=== PATIENT | male | born 1960 | race Caucasian/White ===

== ENCOUNTER 2017-04-23 18:55 | Inpatient (IN) | payer MEDICARE ==
[~2017-04-23] VITALS: Ht 190.5 cm; Wt 103.0 kg
[2017-04-23 19:02] VITALS: BP 136/84
--- NOTE | 2017-04-23 19:09 | Emergency Room Report ---
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 Clinical Suspician of Infection? Mental Status: Sepsis Risk: Have you (or family members/close friends) recently traveled outside the [place]? If Yes, where/when: Have you had exposure to infectious disease within the past month? TB? Other? Specify: 64 years old white male FROM [facility] WHO ARRIVED BY EMS to the ED with sudden onset of upper abdominal pain radiating to the chest with associated vomiting. POOR HISTORIAN AND ROLLING IN BED FROM THE PAIN. Source patient, RN notes reviewed, family, EMS Exam Limitations clinical condition ALLERGIES Coded Allergies: risperidone (From RISPERDAL) (Mild, 04/23/17) History Medical History General Anxiety? Yes Depression? Yes More? Yes Additional hx: PARANOID SCHIZO; EPIGASTRIC PAIN; ONCHYCHOGRPHOSIS, BRONCHOPNEUMOIA; INSOM Surgical Hx Previous Surgery?N Review of Systems All Other Systems Reviewed and Negative Constitutional no symptoms reported Eyes no symptoms reported ENT no symptoms reported. Respiratory no symptoms reported Cardiovascular see HPI, chest pain Gastrointestinal see HPI, abdominal pain, nausea, vomiting Genitourinary no symptoms reported. Musculoskeletal no symptoms reported Skin no symptoms reported Psychiatric/Neurological no symptoms reported Physical Exam Vital Signs Vital Signs Date Time Temp Pulse Resp B/P Pulse O2 O2 Flow FiO2 Ox Delivery Rate 04/23 2100 127 18 121/69 28 04/23 1902 97.8 85 18 136/84 98 - WBC >12,000 or <4,000 or 10% bands? 2 or more SIRS Criteria Met? B/P:136/84 MAP:101 Creatinine >2.0? UA output<0.5ml/kg/hr for 2 hrs? Platelet count >100,000? Lactate >2.0mmol/1? INR >1.2 or PTT > than 60 sec? Evidence of Organ Dysfunction? Provider documented clinical suspician of infection? Y Sepsis Criteria Count: 1 Sepsis Risk: Low Sepsis Risk General Appearance normal appearance, WD/WN Eye Exam - bilateral eye normal exam, bilateral eye PERRL, bilateral eye EOMI Ear, Nose, Throat hearing grossly normal, normal ENT inspection Neck normal inspection, non-tender, supple, full range of motion Respiratory Status Yes: trachea midline, chest symmetrical, non tender chest. No: respiratory distress. Lung Sounds bilateral: normal breath sounds, lungs clear. Cardiovascular normal exam, regular rate/rhythm, no peripheral edema, no gallop, no JVD, no murmur, no rub, normal peripheral pulses Gastrointestinal normal bowel sounds, normal exam, non tender, soft, no organomegaly, no pulsatile mass, abnormal bowel sounds, no guarding, no rebound, SOFT OBESE ABDOMEN NO GUARDING NO RIGIDITY NO REBOUND TENDERNESS TENDERNESS POSITIVE BOWEL SOUNDS. Back normal inspection, no CVA tenderness, no vertebral tenderness Male Genitalia normal genitalia, uncircumcised Nurse present during exam? Yes Neurologic alert, master data analyst II-XII nml as tested, normal exam, oriented x 3 Reflexes Reflexes normal Yes Medical Decision Making LABS/Meds/Orders Pt receiving controlled substance in ED? No Results/Orders Laboratory Tests 04/23/171929: Magnesium 5.1 H 04/23/171929: Sodium 131 L, Potassium 4.4, Chloride 95 L, Carbon Dioxide 26, BUN 17, Creatinine 1.3, Estimated Creat Clear 87, Estimated GFR (MDRD) 57, Glucose 267 H, Calcium 10.3 H, Total Bilirubin 0.9, AST 17, ALT 26, Alkaline Phosphatase 136 H, Creatine Kinase 49, CK-MB (CK-2) Rel Index 2.9, CK and CKMB Interp 1.4, Troponin I < 0.02, Total Protein 8.1, Albumin 3.8, Globulin 4.3 H, Albumin/ Globulin Ratio 0.9 L, Lipase 88, WBC 33.7 *H, RBC 6.36 H, Hgb 18.1 H, Hct 56.3 H, MCV 88.4, RDW 14.6, Plt Count 509 H, MPV 8.6, Gran % 93.5 H, Gran # 31.5 H, Total Counted 100, Lymphocytes % 2.6 L, Monocytes % 3.1, Eosinophils % 0.6, Basophils % 0.3, Neutrophils 62, Band Neutrophils 25 H, Lymphocytes ( Manual) 9 L, Lymphocytes # 0.9, Monocytes (Manual) 4, Monocytes # 1.0, Eosinophils # 0.2, Basophils # 0.1, Platelet Estimate SLIGHT INCREASE, Polychromasia 1+, Hypochromasia 3+, Rouleaux 1+, PUBS MCHC 32.2, MCH 28.5 Current Medication Orders Sig/Saundra Start time Last Medication Dose Route Stop Time Status Admin Sodium Chloride 100 ML .STK-MED ONE 04/23 2057 DC IV Ertapenem 0 .STK-MED ONE 04/23 2056 DC .ROUTE Ertapenem 1 GM ONCE ONE 04/23 2045 AC Sodium Chloride 50 ML IV 04/23 2114 Famotidine 20 MG ONCE ONE 04/23 1915 DC 04/23 IV 04/23 1916 1950 Famotidine 0 .STK-MED ONE 04/23 1915 DC IV Morphine Sulfate 2 MG [id number] PRN 04/23 1915 AC IV Ondansetron HCl 4 MG ONCE ONE 04/23 1915 DC 04/23 IV 04/23 Sodium Chloride 8 ML ONCE ONE 04/23 1915 DC 04/23 IV 04/23 Ondansetron HCl 0 .STK-MED ONE 04/23 1914 DC .ROUTE Sodium Chloride 10 ML PRN PRN 04/23 1900 AC IV 04/24 185 Orders Procedure Date/time Status DIET-NOTHING BY MOUTH 04/24 B Active CULTURE, BLOOD 04/23 2035 Active LACTIC ACID 04/23 2035 Active DIFFERENTIAL-WBC 04/[address] ABD & PELVIS W/O CONTRAST 04/23 1905 Active MAGNESIUM 04/23 1904 Complete ELECTROCARDIOGRAM REQUEST 04/[address] ABD/PELVIS REQ 04/23 1859 Complete CHEST-PORTABLE 04/23 1859 Active IV SALINE LOCK 04/23 1859 Active URINALYSIS/COMPLETE 04/23 1859 Active LIPASE 04/23 1859 Complete CBC WITH AUTO DIFF 04/23 1859 Complete CARDIAC ENZYMES 04/23 1859 Complete CHEM 12 PROFILE 04/23 1859 Complete CM/EKG CM/EKG EKG SINUS TACHYCARDIA AT 1 24/M right BUNDLE BRANCH BLOCK NONSPECIFIC st AND t WAVE CHANGES Departure Departure Time of Disposition 2058 Disposition Still a Patient Clinical Impression Primary Impression: Ileus Secondary Impressions: Constipation, Leucocytosis Condition STABLE Referrals Shmuel GARSIA,Deep Additional Instructions Due to the patient elevated white count, I obtain blood cultures started IV antibiotics and obtained a CT scan of his abdomen and pelvis. I reviewed the patient's labs and CT scan with GENERAL EXPEDITOR SURGEON DR EDMOND who reviewed the CT scan and he does not believe the patient has a distal obstruction. Ischemia cannot be excluded. Dr. lopez recommended the patient to be admitted medical service started on IV antibiotics, obtain Gastrografin enema in the morning and he'll see him in consultation. I contacted Dr. Mi is covering for Dr. Prasad accepted the admission. The patient remained stable during his ED stay with no further vomiting. Discharge Counseling Counseled pt/family regarding diagnosis, test results ED Critical Care Critical Care No If Critical Care minutes are documented, the time involved in the performance of seperately reportable procedures was not counted toward critical care time documented. I directly delivered medical care to this critically ill and/or injured patient. Timely evaluation and treatment was necessary to address the significant organ system(s) dysfunction present in this patient. at [id number]
[2017-04-23 19:46] LABS: LYMPH # 0.9 K/mm3 (0.7-4.5); LYMPH % 2.6 % (10-50)
[2017-04-23 19:51] LABS: HEMOGLOBIN 18.1 g/dL (14.1-18.0)
[2017-04-23 20:14] LABS: NEUTROPHILS 62 % (42-76)
[2017-04-23 20:16] LABS: BUN 17 mg/dL (7-18)
[2017-04-23 20:17] LABS: GFR (ESTIMATED) 57 ML/MIN (>60)
--- NOTE | 2017-04-23 21:21 | RADIOLOGY REPORT PS360 ---
CHEST-PORTABLE HISTORY: Chest pain CP ORDERING PHYSICIAN: Colton Kirkpatrick MD PATIENT AGE: 57 years COMPARISON: None available FINDINGS: The cardiomediastinal silhouette and pulmonary vascularity are within normal limits. The lungs are clear without infiltrates, suspicious nodules, or pleural effusions. No acute bony abnormalities. IMPRESSION: Negative chest, no acute finding
--- NOTE | 2017-04-23 22:14 | RADIOLOGY REPORT PS360 ---
CT ABD PELVIS W/O CONTRAST CLINICAL INDICATION: Abdominal pain with nausea and vomiting PAIN ORDERING PHYSICIAN: Mau Myers MD PATIENT AGE: 57 years COMPARISON: None TECHNIQUE: Axial images obtained with sagittal and coronal reformats. PROCEDURE: Oral Contrast: None IV Contrast: None . FINDINGS: No acute finding in the lung bases. There is a small hiatal hernia. Fluid is present in the distal focus with mild distention of the esophagus. This may be seen with esophageal obstruction or reflux. The liver, gallbladder, spleen, adrenal glands and pancreas are unremarkable. Right kidney is somewhat ectopic and rotated located anterior to the lumbar spine IVC, and right common iliac artery. 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 No obstructing ureteral calculi. No significant hydronephrosis. Urinary bladder slightly distended. Left kidney has an unremarkable appearance. There is mild diffuse dilatation of the entire colon containing fluid and fecal material. There are fluid-filled loops of small bowel without significant distention. No free air evident. Unremarkable appendix. No evidence of diverticulitis. No acute bony anomalies. There is mild dilatation of the common iliac arteries measuring up to 1.9 cm bilaterally. IMPRESSION: 1. Diffusely dilated colon distended with fluid and gas and fecal material consistent with colonic ileus 2. Distended esophagus with fluid with hiatal hernia. 3. 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
[2017-04-23 22:41] VITALS: BP 104/64
[2017-04-24 00:26] LABS: ALLEN'S TEST Y; ARTERIAL ABE -24.9 MMOL/L (-2.4-+2.3); ARTERIAL PO2 87.1 MMHG (80-100); OXYGEN 100
[2017-04-24 00:29] LABS: LYMPH # 2.3 K/mm3 (0.7-4.5); LYMPH % 9.1 % (10-50)
[2017-04-24 00:30] LABS: HEMOGLOBIN 16.1 g/dL (14.1-18.0)
--- NOTE | 2017-04-24 01:11 | Discharge Summary Standard ---
Demographics: Admit date: 04/23/17 Chief complaint: Abdominal pain PRIMARY DIAGNOSIS: COLITIS Allergies: Coded Allergies: risperidone (From RISPERDAL) (Mild, 04/23/17) History of present illness: History of present illness: 57-year-old male presented to the emergency department with abdominal pain. Please refer to the ER note for patient's presentation. At the time of this documentation the patient is nonresponsive. Patient was noted that the elevated white blood cell count and abnormal CT scan (no report is available at this time ). Patient was admitted on IV antibiotics. No review of systems was obtainable due to the patient's status at the time of interview Past medical history: Family HX Family Hx Insignificant No Immunization HX Ped.Immunizations UTD Yes DT/Tetanus 1-4 Years Ago Pneumonia Unknown TB Test in last year Yes Result Negative General Anxiety? Yes Depression? Yes More? Yes Additional hx: PARANOID SCHIZO; EPIGASTRIC PAIN; ONCHYCHOGRPHOSIS, BRONCHOPNEUMOIA; INSOM Past Surgical HX Previous Surgery?N Social Hx: Smoking HX Tobacco Yes Type Cigarettes Packs/day < 1 PACK Are you/the child exposed to second-hand smoke: No Alcohol Alcohol: No Hx of Drug Use Drug Use? No Review of systems: Constitutional no symptoms reported. Respiratory see HPI. Cardiovascular see HPI Gastrointestinal/Abdominal see HPI Genitourinary see HPI. Musculoskeletal see HPI. Neurological Yes: see HPI. Exam: Lab data for last 24 hours: Laboratory Tests 04/24/17 0024: ABG pH 6.74 *L, ABG pCO2 (Temp Corrct 80.0 H, ABG pO2 (Temp Correct 87.1, ABG HCO3 10.6 L, ABG Total CO2 13.0 L, ABG O2 Sat (Calculated) 86.5 *L, ABG Base Excess -24.9 L, Ottoniel Test Y, Blood Gas Comments L/F 04/24/17 0010: Lactic Acid 17.9 H 04/24/17 0010: Sodium 135 L, Potassium 4.2, Chloride 99, Carbon Dioxide 17 L, BUN 24 H, Creatinine 1.9 H, Estimated Creat Clear 62, Estimated GFR (MDRD) 37, Glucose 350 H, Calcium 10.1, Total Bilirubin 0.8, AST 47 H, ALT 30, Alkaline Phosphatase 120 H, Creatine Kinase 99, CK-MB (CK-2) Rel Index 1.0, CK and CKMB Interp 1.0, Troponin I 0.03, Total Protein 5.2 L, Albumin 2.2 L, Globulin 3.0, Albumin/Globulin Ratio 0.7 L, WBC 24.9 *H, RBC 5.61, Hgb 16.1, Hct 56.0 H, MCV 99.8 H, RDW 14.1, Plt Count 380, MPV 9.9, Gran % 81.6 H, Gran # 20.4 H, Lymphocytes % 9.1 L, Monocytes % 7.6, Eosinophils % 0.7, Basophils % 1.0, Lymphocytes # 2.3, Monocytes # 1.9 H, Eosinophils # 0.2, Basophils # 0.2, PUBS MCHC 28.8 L, MCH 28.7 04/23/172114: Lactic Acid 7.5 H 04/23/171929: Magnesium 5.1 H 04/23/171929: Sodium 131 L, Potassium 4.4, Chloride 95 L, Carbon Dioxide 26, BUN 17, Creatinine 1.3, Estimated Creat Clear 87, Estimated GFR (MDRD) 57, Glucose 267 H, Calcium 10.3 H, Total Bilirubin 0.9, AST 17, ALT 26, Alkaline Phosphatase 136 H, Creatine Kinase 49, CK-MB (CK-2) Rel Index 2.9, CK and CKMB Interp 1.4, Troponin I < 0.02, Total Protein 8.1, Albumin 3.8, Globulin 4.3 H, Albumin/ Globulin Ratio 0.9 L, Lipase 88, WBC 33.7 *H, RBC 6.36 H, Hgb 18.1 H, Hct 56.3 H, MCV 88.4, RDW 14.6, Plt Count 509 H, MPV 8.6, Gran % 93.5 H, Gran # 31.5 H, Total Counted 100, Lymphocytes % 2.6 L, Monocytes % 3.1, Eosinophils % 0.6, Basophils % 0.3, Neutrophils 62, Band Neutrophils 25 H, Lymphocytes ( Manual) 9 L, Lymphocytes # 0.9, Monocytes (Manual) 4, Monocytes # 1.0, Eosinophils # 0.2, Basophils # 0.1, Platelet Estimate SLIGHT INCREASE, Polychromasia 1+, Hypochromasia 3+, Rouleaux 1+, PUBS MCHC 32.2, MCH 28.5 Microbiology 04/23 2115 BLOOD: Anaerobic Blood Culture - RECD 04/23 2115 BLOOD: Aerobic Blood Culture - RECD 04/23 2115 BLOOD: Anaerobic Blood Culture - RECD 04/23 2115 BLOOD: Aerobic Blood Culture - RECD Admission vital signs: 1ST Vital Signs Result Date Time Pulse Ox 98 04/23 1902 B/P 136/84 04/23 1902 Temp 97.8 04/23 1902 Pulse 85 04/23 190 Resp 18 04/23 1902 O2 Delivery ROOM AIR 04/23 2241 Additional information: Patient is not responsive to verbal or tactile stimulus. He exhibits no response to painful stimulus such as sternal rub or nail bed compression. Pupils are fixed and dilated. Corneal reflexes absent in both eyes. Patient makes no spontaneous respiratory efforts. Heart sounds are absent. Abdomen is obese and distended without bowel sounds. Patient does not move extremities in both hands and feet are cold to the touch. He makes no purposeful movements of his extremities. Hospital Course Hospital Course: Patient was admitted and shortly after admission developed large-volume emesis and then became unresponsive. A code 500 was called. Please refer to code 500 documentation sheet. Patient was intubated and treated per code 500 sheet. After intubation and initial stabilization patient's condition deteriorated again. This is when I came in to evaluate the patient and he was found per my previous exam. I reviewed all available documentation as well as patient's labs. Patient had a significantly elevated white blood cell count on presentation as well as lactic acid. ABG and repeat lactic acid performed during code 500 showed severe acidosis. I suspect the patient had a bowel perforation. I did not believe the patient would recover from his event. Supportive measures were stopped. Patient at 1:21 AM Medications Medications: Discharge meds are as noted. Follow up Follow up in office in: none with: oLuis GARSIA,Mau Wood at 0121
--- NOTE | 2017-04-24 01:39 | Emergency Room Report ---
Code Presentation/Treatment Time Seen by 2020 Initial Onset/Presentation This 57 year old, male that presented to the ER with abdominal pain, from [facility], was diagnosed with ileus, and severe sepsis, was started on iv antibiotics and was admitted, after verbal consultation with the general surgeon, Dr. Edmond. Upon admission to the floor the patient requested to be taken to the bathroom where he started having large volume emesis, was brought back to the room where he passed out, pulseless. A ANGLE BROWN was immediately called. Upon my arrival to the patient's room the patient is receiving ventilation via Ambu bag and was receiving cardiopulmonary resuscitation. Patient displays no sign of life at this time, no spontaneous respirations, no corneal reflex, pupils are fixed and dilated, no palpable pulses, no spontaneous respirations. Prior records he has a history of paranoid schizophrenia. to the by . Hx of arrest: CPR was initiated by . Presenting Rhythm: Defibrillated FOREST PATHOLOGY TEACHER? Attending physician(s): Anesthesia: Nursing: RT: Pharmacy: Other: Code Treatment O2 Mask%100 Y Ambu in use? Y Intubated?Y Time:0005 Size:7.5 Route:ORAL By:TYSHAWN IRVIN Chest tube placed? N Left? Right? Size: Inserted by: Attached to suction? See Angle Brown nursing documentation for defibrillation - no defibrillation Pacemaker used? N Rhythm when applied: MA: Rate: Capture obtained? ALLERGIES Coded Allergies: risperidone (From RISPERDAL) (Mild, 04/23/17) Home Medications Reported Medications Hyoscyamine Sulfate 0.125 MG PO TID History Medical History General Anxiety? Yes Depression? Yes More? Yes Additional hx: PARANOID SCHIZO; EPIGASTRIC PAIN; ONCHYCHOGRPHOSIS, BRONCHOPNEUMOIA; INSOM Immunization Hx Ped.Immunizations UTD Yes DT/Tetanus 1-4 Years Ago Pneumonia Unknown TB Test in last year Yes Result Negative Surgical Hx Previous Surgery?N Social History Smoking HX Tobacco Yes Type Cigarettes Packs/day < 1 Pack Are you/the child exposed to second-hand smoke: No Alcohol Alcohol: No Review of Systems All Other Systems Reviewed and Negative Comment Patient is currently unresponsive Physical Exam Vital Signs Refer to [employer] nursing documentation record for code vital signs. Vital Signs Date Time Temp Pulse Resp B/P Pulse O2 O2 Flow FiO2 Ox Delivery Rate 04/23 2241 127 04/23 2241 97.5 115 20 104/64 04/23 2241 90 ROOM AIR 04/23 2241 97.5 115 20 104/64 89 ROOM AIR 04/23 2217 97.8 127 18 100/50 28 04/23 2100 127 18 121/69 28 04/23 1902 97.8 85 18 136/84 98 General Appearance unresponsive Eye Exam Eye Exam bilateral eye other (pupils fixed, dilated) Neck normal inspection Lung Sounds bilateral: rales (no spontaneous respirations). Cardiovascular no audible cardiac tones Neurologic unresponsive to deep pain Glascow Coma Scale Glascow Coma Scale Response Value EYE response: 1 NO RESPONSE 1 MOTOR response: 1 NO RESPONSE 1 VERBAL response: 1 NO RESPONSE 1 Total 3 Mental status unresponsive Skin diaphoresis Medical Decision Making LABS/Meds/Orders Results/Orders Laboratory Tests 04/24/17 0024: ABG pH 6.74 *L, ABG pCO2 (Temp Corrct 80.0 H, ABG pO2 (Temp Correct 87.1, ABG HCO3 10.6 L, ABG Total CO2 13.0 L, ABG O2 Sat (Calculated) 86.5 *L, ABG Base Excess -24.9 L, Ottoniel Test Y, Blood Gas Comments L/F 04/24/17 0010: Lactic Acid 17.9 H 04/24/17 0010: Sodium 135 L, Potassium 4.2, Chloride 99, Carbon Dioxide 17 L, BUN 24 H, Creatinine 1.9 H, Estimated Creat Clear 62, Estimated GFR (MDRD) 37, Glucose 350 H, Calcium 10.1, Total Bilirubin 0.8, AST 47 H, ALT 30, Alkaline Phosphatase 120 H, Creatine Kinase 99, CK-MB (CK-2) Rel Index 1.0, CK and CKMB Interp 1.0, Troponin I 0.03, Total Protein 5.2 L, Albumin 2.2 L, Globulin 3.0, Albumin/Globulin Ratio 0.7 L, WBC 24.9 *H, RBC 5.61, Hgb 16.1, Hct 56.0 H, MCV 99.8 H, RDW 14.1, Plt Count 380, MPV 9.9, Gran % 81.6 H, Gran # 20.4 H, Lymphocytes % 9.1 L, Monocytes % 7.6, Eosinophils % 0.7, Basophils % 1.0, Lymphocytes # 2.3, Monocytes # 1.9 H, Eosinophils # 0.2, Basophils # 0.2, PUBS MCHC 28.8 L, MCH 28.7 04/23/172114: Lactic Acid 7.5 H 04/23/171929: Magnesium 5.1 H 04/23/171929: Sodium 131 L, Potassium 4.4, Chloride 95 L, Carbon Dioxide 26, BUN 17, Creatinine 1.3, Estimated Creat Clear 87, Estimated GFR (MDRD) 57, Glucose 267 H, Calcium 10.3 H, Total Bilirubin 0.9, AST 17, ALT 26, Alkaline Phosphatase 136 H, Creatine Kinase 49, CK-MB (CK-2) Rel Index 2.9, CK and CKMB Interp 1.4, Troponin I < 0.02, Total Protein 8.1, Albumin 3.8, Globulin 4.3 H, Albumin/ Globulin Ratio 0.9 L, Lipase 88, WBC 33.7 *H, RBC 6.36 H, Hgb 18.1 H, Hct 56.3 H, MCV 88.4, RDW 14.6, Plt Count 509 H, MPV 8.6, Gran % 93.5 H, Gran # 31.5 H, Total Counted 100, Lymphocytes % 2.6 L, Monocytes % 3.1, Eosinophils % 0.6, Basophils % 0.3, Neutrophils 62, Band Neutrophils 25 H, Lymphocytes ( Manual) 9 L, Lymphocytes # 0.9, Monocytes (Manual) 4, Monocytes # 1.0, Eosinophils # 0.2, Basophils # 0.1, Platelet Estimate SLIGHT INCREASE, Polychromasia 1+, Hypochromasia 3+, Rouleaux 1+, PUBS MCHC 32.2, MCH 28.5 Current Medication Orders Sig/Saundra Start time Last Medication Dose Route Stop Time Status Admin Levofloxacin/Dextrose 150 ML DAILY 04/24 09 DCDr IV 04/28 1030 Epinephrine HCl 1 MG ONCE ONE 04/24 615 DCD 04/23 IV 04/24 616 234 Sodium Bicarbonate 25 ML ONCE ONE 04/24 615 DCD 04/23 IV 04/24 616 235 Sodium Chloride 2,000 ML ONCE ONE 04/24 615 DCD 04/23 IV 04/24 Famotidine 0 .STK-MED ONE 04/24 0022 DC IV Enoxaparin Sodium 0 .STK-MED ONE 04/24 002 DC SC Enoxaparin Sodium 40 MG ONCE ONE 04/24 0015 DC 04/24 SC 04/24 0016 0030 Famotidine 20 MG ONCE ONE 04/24 0015 DC 04/24 IV 04/24 0016 0030 Sodium Chloride 50 ML .STK-MED ONE 04/23 2304 DC IV Piperacillin Sod/ 0 .STK-MED ONE 04/23 2301 DC Tazobactam Sod .ROUTE Sodium Chloride 100 ML .STK-MED ONE 04/23 2301 DC IV Piperacillin Sod/ 3.375 GM Q6 04/23 2300 DCD 04/23 Tazobactam Sod IV 2310 Sodium Chloride 50 ML Sodium Chloride 1,000 ML .STK-MED ONE 04/23 2205 DC IV Influenza Virus 0.5 ML PRN PRN 04/23 2145 DCD Vaccine Quadrival IM Morphine Sulfate 2 MG Q2HP PRN 04/23 2145 DCD IV Nicotine 21 MG DAILYP PRN 04/23 2145 DCD TD Ondansetron HCl 4 MG Q6HP PRN 04/23 2145 DCD IV Sodium Chloride 1,000 ML .Q25H 04/23 2145 DCD 04/23 IV 2207 Sodium Chloride 100 ML .STK-MED ONE 04/23 2057 DC IV Ertapenem 0 .STK-MED ONE 04/23 2056 DC .ROUTE Ertapenem 1 GM ONCE ONE 04/23 2045 DC 04/23 Sodium Chloride 50 ML IV 04/23 Famotidine 20 MG ONCE ONE 04/23 1915 DC 04/23 IV 04/23 1916 1950 Famotidine 0 .STK-MED ONE 04/23 1915 DC IV Morphine Sulfate 2 MG [id number] PRN 04/23 1915 DCD IV Ondansetron HCl 4 MG ONCE ONE 04/23 1915 DC 04/23 IV 04/23 Sodium Chloride 8 ML ONCE ONE 04/23 1915 DC 04/23 IV 04/23 1916 1950 Ondansetron HCl 0 .STK-MED ONE 04/23 1914 DC .ROUTE Sodium Chloride 10 ML PRN PRN 04/23 1900 DCD IV 04/24 1859 Orders Procedure Date/time Status CHEST-PORTABLE 04/24 235 Active CODE 500 FORM FILED NOTICE 04/24 0748 Active CBC WITH AUTO DIFF 04/24 0600 Complete CARDIAC ENZYMES 04/24 0600 Complete RT CODE BLUE Response 04/24 0412 Active LACTIC ACID FOLLOW UP 04/24 0021 Complete ADMITTED PT IS ACTUALLY IN BED 04/23 225 Active PT IS SMOKER-DO SMOKE CESSAT. 04/23 2257 Active AA HELP AFTER D/C QUERY RESP 04/23 2257 Active AA D/C PLANNING NEEDED QUERY 04/23 2257 Active ADM ASSESS SMOKER RESPONSE 04/23 2257 Active Decision to admit 04/23 2107 Active CULTURE, BLOOD 04/23 2035 Active LACTIC ACID 04/23 2035 Complete DIFFERENTIAL-WBC 04/23 1930 Complete MAGNESIUM 04/23 1904 Complete ELECTROCARDIOGRAM REQUEST 04/[address] ABD/PELVIS REQ 04/23 185 Complete IV SALINE LOCK 04/23 1859 Active URINALYSIS/COMPLETE 04/23 185 Active LIPASE 04/23 185 Complete CBC WITH AUTO DIFF 04/23 185 Complete CARDIAC ENZYMES 04/23 185 Complete CHEM 12 PROFILE 04/23 185 Complete ADMIT PATIENT 04/23 UNK Active 12 LEAD EKG-NAE (INITIAL) 04/23 UNK Active VITAL SIGNS 04/23 UNK Active GEN NSG/PT REQ (NOT FOR MEDS!) 04/23 UNK Active CODE STATUS 04/23 UNK Active PATIENT ACTIVITY ORDER 04/23 UNK Active COMPLETE METABOLIC PANEL 04/23 UNK Complete Local cords visualized during intubation, ET tube placed through the vocal cords. Bilateral breath sounds audible in both lung kumar post intubation. Chest seen the rising post intubation. ET tube fogging post intubation. Pulse oximetry of raising after intubation. Colorimetric CO2 detector confirms correct placement. After coding patient per pulseless electrical activity he regained pulse and blood pressure. He appears to be in normal sinus rhythm, blood pressure 108/56, heart rate 98. Case turned over to Dr. Mi, who will come in to see and evaluate patient for further disposition. Patient remains unresponsive postcode, with fixed and dilated previous, no spontaneous movements. Upon my departure from the room IV instructed the nurse to obtain a complete blood count, complete metabolic panel, ABG, a new set of cardiac enzymes, which stable all day to be reported directed Dr. Mi. Patient remains in critical condition, at least for multiple complications, including , sepsis, perforation, myocardial infarction, etc. Guardian not available at this time. (Albaro GARSIA,Tyshawn Hanna) XRAY/CT/US XRAY/CT/US XRAY chest XR interpretation by reviewed by me Xray Results ET tube above the mike, no visible infiltrates at this time Procedures Intubation Intubation Risks/benefits discussed with pt/guardian? No Time of Intubation 1205 Intubation Method orotracheal Tube Size (cm) 7.5 Medications Other (nontender received) Breath Sounds after Intubation: equal Intubation Complications no complications Post Intubation Xray Yes (ET tube above mike) Departure Departure Time of Disposition 0035 Disposition Still a Patient Clinical Impression Primary Impression: Cardiac arrest Secondary Impressions: Constipation Qualifiers: Constipation type: unspecified constipation type Qualified Code: K59.00 - Constipation, unspecified Ileus Leucocytosis Qualifiers: Leukocytosis type: bandemia Qualified Code: D72.825 - Bandemia Sepsis Qualifiers: Sepsis type: sepsis due to unspecified organism Qualified Code: A41.9 - Sepsis, unspecified organism Condition STABLE Referrals Louis GARSIA,Mau Wood (Family) Additional Instructions Due to the patient elevated white count, I obtain blood cultures started IV antibiotics and obtained a CT scan of his abdomen and pelvis. I reviewed the patient's labs and CT scan with COMPLIANCE REPRESENTATIVE SURGEON DR EDMOND who reviewed the CT scan and he does not believe the patient has a distal obstruction. Ischemia cannot be excluded. Dr. lopez recommended the patient to be admitted medical service started on IV antibiotics, obtain Gastrografin enema in the morning and he'll see him in consultation. I contacted Dr. Mi is covering for Dr. Prasad accepted the admission. The patient remained stable during his ED stay with no further vomiting. ED Critical Care Critical Care Yes Time spent 30-74 min Vital system(s) involved: Central Nervous System, Shock (Septic) I was present at bedside for Coordinating pt's care, During my initial exam, Reviewing lab results, Reviewing old records, For re-examinations, Examining radiographs at 0802
[2017-04-24] MEDS ORDERED: HYOSCYAMINE0.125 M2 PO (07:12)
[2017-04-24] MEDS ORDERED: LEVOTHYROXIN0.075 M1 PO (08:11)
[2017-04-24] MEDS ORDERED: LORAZEPAM1 MG/TABLE PO (08:12)
[2017-04-24] MEDS ORDERED: MAG-OX 400MG T400 MG PO (08:12)
[2017-04-24] MEDS ORDERED: MULTIVITAMIN1 SGL PO (08:13)
[2017-04-24] MEDS ORDERED: LEADER MELATONIN5 MG PO (08:13)
[2017-04-24] MEDS ORDERED: GOOD SENSE OMEP20 MG PO (08:14)
[2017-04-24] MEDS ORDERED: MIRALAX(PO17 GM/1 PA PO (08:14)
[2017-04-24] MEDS ORDERED: GAVISCON 6180 ML/BOT OR (08:15)
[2017-04-24] MEDS ORDERED: SIMETHICONE80 MG PO (08:17)
[2017-04-24] MEDS ORDERED: [UNRECOGNIZED DRUG - OTHER] PO (08:17)
[2017-04-24] MEDS ORDERED: AMLODIPINE10 MG PO (08:18)
[2017-04-24] MEDS ORDERED: CLOZAPINE100 MG PO ×2 (08:19→08:20)
[2017-04-24] MEDS ORDERED: ROBINUL FORTE2 MG PO (08:21)
[2017-04-24] MEDS ORDERED: PRAZOSIN HCL2 MG PO (08:22)
[2017-04-24] MEDS ORDERED: VITAMIN C500 M1 PO (08:23)
[2017-04-24] MEDS ORDERED: TRAZODONE150 MG PO (08:23)
[2017-04-24] MEDS ORDERED: VITAMIN D32000 UNI1 PO (08:24)
--- NOTE | 2017-04-24 12:01 | RADIOLOGY REPORT PS360 ---
CHEST-PORTABLE HISTORY: CODE BLUEET tube and NG tube placement] Patient Age: 57 years: Male Ordering Physician: Mau Myers MD TECHNIQUE: AP portable supine chest COMPARISON :04/23/2017 CXR portable FINDINGS Lungs clear with no discrete focal infiltrate. . The AeD pads overlie the left chest. Upper normal markings at the left perihilar left infrahilar region most likely related to overlapping structures but would benefit from follow-up chest film to exclude early infiltrate. The NG tube is in place at passes to the stomach.. ET tube tip is near the mike mike, less than 5 mm above mike. Low satisfactory position. IMPRESSION: 1. NG tube satisfactory position. Tip in stomach 2. ET tube tip at mike ; Less than-5 mm above mike. Reflects Low satisfactory position. 3. Nothing definitely acute. Chest otherwise seen. 4. Upper normal markings left perihilar, infrahilar region suspect related to overlapping structures.. Suggest follow-up chest film this evening or in morning, after patient stabilized
== END 2017-04-24 01:20 | disposition expired | DRG 391 ==
LOC: ER 18:55 → 2ND 21:08
PROVIDERS: Emergency Medicine
PROC: 0BH17EZ Insertion of Endotracheal Airway into Trachea, Via Natural or Artificial Opening (ICD-10-PCS; principal; 2017-04-23)
DX: K52.9 Noninfective gastroenteritis and colitis, unspecified (principal); K63.1 Perforation of intestine (nontraumatic); I46.9 Cardiac arrest, cause unspecified; E87.2 Acidosis; F20.0 Paranoid schizophrenia; Z72.0 Tobacco use
CPT/HCPCS: J1335; J2405; J2543